=== PATIENT | female | born 1995 | race African-American/Black ===

== ENCOUNTER 2019-10-12 19:12 | Emergency (ER) | payer OTHER ==
[~2019-10-12] VITALS: Ht 162.6 cm; Wt 48.0 kg
[2019-10-12] MEDS ORDERED: NORCO, ANEXSIA 5/325MG TABLET (HYDROcodone/ACETAMINOPHEN) PO ONE (20:00)
[2019-10-12] MEDS ORDERED: IBUP-1022 PO (20:43)
[2019-10-12] MEDS ORDERED: NORC1TAB7 PO (20:43)
[2019-10-12] MEDS ORDERED: NORCO 5/325MG TABLET (BULK FOR ED) PO ONE (20:45)
[2019-10-12 20:57] VITALS: BP 130/77
--- NOTE | 2019-10-13 08:51 | REP ---
Right foot: Four views. History: Stubbing injury of the toes. Pain dorsal and lateral foot. Findings: There transversely oriented fracture through the proximal metaphyses of the proximal phalanges of the fourth and fifth toe. There is associated soft-tissue swelling. Neither of these fracture show significant displacement. No other fracture is seen. Impression: Proximal fourth and fifth phalangeal fractures. Electronically Signed by Jarrell Biggs MD 10/13/2019 08:43 A
== END 2019-10-12 21:01 | disposition home or self-care (01) ==
LOC: M ED 19:12
DX: S92.531A Displaced fracture of distal phalanx of right lesser toe(s), initial encounter for closed fracture (principal); W22.8XXA Striking against or struck by other objects, initial encounter; Y92.018 Other place in single-family (private) house as the place of occurrence of the external cause